=== PATIENT | male | born 1945 | race Caucasian/White ===

== ENCOUNTER 2023-04-23 23:45 | Inpatient (IN) | payer OTHER ==
[2023-04-24 02:05] LABS: VENOUS BASE EXCESS -2.7 mmol/L (-2-2); VENOUS O2 SATURATION 36.7 % (70-80); VENOUS PCO2 43.5 mmHg (38-52); VENOUS PH 7.343 (7.310-7.410)
[2023-04-24 02:07] LABS: BASO % 0.5 % (0-2.0); EOS % 0.4 % (0-4.5); HEMATOCRIT 42.8 % (35.4-49); HEMOGLOBIN 14.7 GM/dL (11.7-16.9); LYMPH % 9.3 % (8-40); MCH 30.1 pg (25.7-33.7); MCHC 34.3 g/dl (32.0-35.9); MEAN CELL VOLUME 87.9 fl (80-96); MEAN PLT VOLUME 8.5 fl (7.5-11.1); MONO % 8.9 % (3.8-10.2); NEUT % 80.9 % (42.8-82.8); PLATELET COUNT 298 10^3/uL (134-434); RBC 4.87 M/mm3 (4.00-5.60); RDW 13.9 % (11.9-15.9); WHITE BLOOD COUNT 11.6 K/mm3 (4.0-10.0)
[2023-04-24 02:15] LABS: INR 1.05 (0.83-1.09); PROTHROMBIN TIME (PATIENT) 12.2 SEC (9.7-13.0)
[2023-04-24 02:17] LABS: ACTIVATED PTT 34.7 SECONDS (25.2-36.5)
[2023-04-24] MEDS: SODIUM CHLORIDE 0.9% 500 ML INFUS.BAG IV ONE ×3 (02:35→05:08)
[2023-04-24] MEDS ORDERED: VANCOMYCIN 1 GRAM (PRE-DOCKED) 1,000 MG/250 ML BAG IVPB ONE (02:35)
[2023-04-24] MEDS: VANCOMYCIN 1,000 MG in DEXTROSE 5%-WATER - 250 ML IVPB ONE (02:41)
[2023-04-24 02:44] LABS: LACTIC ACID 2.8 mmol/L (0.4-2.0)
[2023-04-24 03:02] LABS: CALCIUM 10.4 mg/dL (8.5-10.1); POTASSIUM 3.7 mmol/L (3.5-5.1)
[2023-04-24 03:04] LABS: BLOOD UREA NITROGEN 36.7 mg/dL (7-18)
[2023-04-24 03:07] LABS: CREATININE 1.3 mg/dL (0.55-1.3)
[2023-04-24 03:09] LABS: BILIRUBIN,TOTAL 0.9 mg/dL (0.2-1); TOT PROT 7.5 g/dl (6.4-8.2)
[2023-04-24 03:14] LABS: ALBUMIN 3.6 g/dl (3.4-5.0)
[2023-04-24 05:24] LABS: LACTIC ACID 2.2 mmol/L (0.4-2.0)
[2023-04-24] MEDS: SODIUM CHLORIDE 1,000 ML IV SCH (05:45)
[2023-04-24 05:55] LABS: EPI CELLS 4 /uL (0-25.1); HYALINE CASTS 0 /uL (0-3.1); URINE APPEARANCE CLEAR; URINE BACTERIA 0 /uL (0-1359); URINE BILIRUBIN NEGATIVE (NEGATIVE); URINE COLOR DK YELLOW; URINE GLUCOSE (UA) NEGATIVE (NEGATIVE); URINE KETONE 2+ (NEGATIVE); URINE LEUK ESTERASE NEGATIVE (NEGATIVE); URINE NITRITE NEGATIVE (NEGATIVE); URINE PROTEIN 1+ (NEGATIVE); URINE RBC 6 /uL (0-23.9); URINE WBC 6 /uL (0-25.8)
[2023-04-24 06:19] LABS: COCAINE, UR NEGATIVE (NEGATIVE); OPIATES, URI NEGATIVE (NEGATIVE); PHENCYCLIDINE,URINE NEGATIVE (NEGATIVE); URINE AMPHETAMINES NEGATIVE (NEGATIVE); URINE BARBITURATES NEGATIVE (NEGATIVE)
[2023-04-24 06:20] LABS: METHADONE, UR NEGATIVE (NEGATIVE); URINE BENZODIAZEPINES NEGATIVE (NEGATIVE)
[2023-04-24] MEDS ORDERED: CEFTRIAXONE 1 GM/50 ML BAG ONE (06:53)
[2023-04-24] MEDS ORDERED: HEPARIN NA (PORCINE) 5,000 UNITS/ML 1ML VIAL ONE (06:53)
[2023-04-24] MEDS: CEFTRIAXONE 1 GM in DEXTROSE 5%-WATER - 50 ML IVPB SCH (06:59)
[2023-04-24] MEDS: HEPARIN NA (PORCINE) 5,000 UNITS/ML 1ML VIAL SQ SCH (07:05)
[2023-04-24 07:37] LABS: BASO % 0.6 % (0-2.0); EOS % 0.6 % (0-4.5); HEMOGLOBIN 13.5 GM/dL (11.7-16.9); LYMPH % 10.3 % (8-40); MCH 30.3 pg (25.7-33.7); MCHC 34.6 g/dl (32.0-35.9); MEAN CELL VOLUME 87.6 fl (80-96); MONO % 9.4 % (3.8-10.2); NEUT % 79.1 % (42.8-82.8); PLATELET COUNT 268 10^3/uL (134-434); RBC 4.45 M/mm3 (4.00-5.60); RDW 13.6 % (11.9-15.9)
[2023-04-24 07:58] LABS: POTASSIUM 3.5 mmol/L (3.5-5.1)
[2023-04-24 08:00] LABS: ALBUMIN 3.1 g/dl (3.4-5.0); BLOOD UREA NITROGEN 34.3 mg/dL (7-18); CALCIUM 9.4 mg/dL (8.5-10.1)
[2023-04-24 08:04] LABS: CREATININE 1.1 mg/dL (0.55-1.3); PHOSPHOROUS 2.8 mg/dL (2.5-4.9)
[2023-04-24 08:05] LABS: BILIRUBIN,TOTAL 0.9 mg/dL (0.2-1); TOT PROT 6.6 g/dl (6.4-8.2)
[2023-04-24 08:32] LABS: URINE CRYSTALS NEGATIVE /hpf
[2023-04-24 10:05] VITALS: BMI 25.2
[2023-04-24] MEDS: LORazepam 2 MG/ML SDV VIAL IVPUSH ONE (20:26)
[2023-04-24 21:42] LABS: METHADONE, UR NEGATIVE (NEGATIVE); PHENCYCLIDINE,URINE NEGATIVE (NEGATIVE); URINE BENZODIAZEPINES NEGATIVE (NEGATIVE)
[2023-04-24 21:43] LABS: COCAINE, UR NEGATIVE (NEGATIVE); OPIATES, URI NEGATIVE (NEGATIVE); URINE BARBITURATES NEGATIVE (NEGATIVE)
[2023-04-24] MEDS ORDERED: ATORVASTATIN CA 40 MG TABLET (FP) PO SCH (22:00)
[2023-04-24 22:50] LABS: URINE AMPHETAMINES NEGATIVE (NEGATIVE)
[2023-04-24] MEDS: QUEtiapine FUMARATE 25 MG TABLET PO SCH (23:13)
[2023-04-25 09:01] LABS: BASO % 0.6 % (0-2.0); HEMATOCRIT 39.6 % (35.4-49); HEMOGLOBIN 13.2 GM/dL (11.7-16.9); LYMPH % 12.3 % (8-40); MCH 29.7 pg (25.7-33.7); MCHC 33.3 g/dl (32.0-35.9); MEAN CELL VOLUME 89.3 fl (80-96); MEAN PLT VOLUME 9.4 fl (7.5-11.1); MONO % 9.9 % (3.8-10.2); NEUT % 75.2 % (42.8-82.8); PLATELET COUNT 238 10^3/uL (134-434); RBC 4.44 M/mm3 (4.00-5.60); RDW 13.9 % (11.9-15.9); WHITE BLOOD COUNT 9.4 K/mm3 (4.0-10.0)
[2023-04-25 09:20] LABS: POTASSIUM 3.7 mmol/L (3.5-5.1)
[2023-04-25 09:24] LABS: ALBUMIN 2.9 g/dl (3.4-5.0)
[2023-04-25 09:25] LABS: CALCIUM 8.8 mg/dL (8.5-10.1); MAGNESIUM 1.8 mg/dL (1.8-2.4)
[2023-04-25 09:26] LABS: BLOOD UREA NITROGEN 26.9 mg/dL (7-18)
[2023-04-25 09:27] LABS: CREATININE 1.1 mg/dL (0.55-1.3)
[2023-04-25 09:28] LABS: BILIRUBIN,TOTAL 0.8 mg/dL (0.2-1); TOT PROT 6.3 g/dl (6.4-8.2)
[2023-04-25] MEDS ORDERED: PATIENT'S OWN MEDICATION (NON-FORMULARY) (Amlodipine Besylate/Benazepril [Amlodipine-Benaz PO SCH (10:00)
[2023-04-25] MEDS: amLODIPine BESYLATE 5 MG TABLET (FP) PO SCH (11:08)
[2023-04-25] MEDS: LISINOPRIL 20 MG TABLET PO SCH (11:08)
[2023-04-26 07:53] LABS: POTASSIUM 3.3 mmol/L (3.5-5.1)
[2023-04-26 07:54] LABS: CALCIUM 8.9 mg/dL (8.5-10.1)
[2023-04-26 07:55] LABS: BLOOD UREA NITROGEN 20.3 mg/dL (7-18)
[2023-04-26 08:07] LABS: BASO % 0.6 % (0-2.0); EOS % 2.8 % (0-4.5); MCH 30.1 pg (25.7-33.7); MCHC 34.1 g/dl (32.0-35.9); MEAN CELL VOLUME 88.2 fl (80-96); MEAN PLT VOLUME 9.2 fl (7.5-11.1); MONO % 11.1 % (3.8-10.2); NEUT % 68.5 % (42.8-82.8); PLATELET COUNT 223 10^3/uL (134-434); RBC 4.31 M/mm3 (4.00-5.60); RDW 13.7 % (11.9-15.9); WHITE BLOOD COUNT 8.6 K/mm3 (4.0-10.0)
[2023-04-26] MEDS: GABAPENTIN 100 MG CAPSULE PO SCH ×2 (11:39→23:01)
[2023-04-26] MEDS: POTASSIUM CHLORIDE TABS 20 MEQ TABLET.ER (FP) PO ONE (13:50)
[2023-04-26] MEDS: ATORVASTATIN CA 40 MG TABLET (FP) PO SCH (23:01)
[2023-04-27 08:41] LABS: BASO % 0.9 % (0-2.0); EOS % 3.8 % (0-4.5); HEMATOCRIT 40.9 % (35.4-49); HEMOGLOBIN 13.6 GM/dL (11.7-16.9); LYMPH % 16.8 % (8-40); MCH 29.7 pg (25.7-33.7); MCHC 33.4 g/dl (32.0-35.9); MEAN CELL VOLUME 88.9 fl (80-96); MEAN PLT VOLUME 9.3 fl (7.5-11.1); NEUT % 67.5 % (42.8-82.8); PLATELET COUNT 245 10^3/uL (134-434); RDW 14.1 % (11.9-15.9); WHITE BLOOD COUNT 6.7 K/mm3 (4.0-10.0)
[2023-04-27 08:59] LABS: POTASSIUM 3.1 mmol/L (3.5-5.1)
[2023-04-27 09:06] LABS: BLOOD UREA NITROGEN 16.5 mg/dL (7-18); CALCIUM 9.2 mg/dL (8.5-10.1)
[2023-04-27 09:11] LABS: TOT PROT 6.6 g/dl (6.4-8.2)
[2023-04-27] MEDS: POTASSIUM CHLORIDE TABS 20 MEQ TABLET.ER (FP) PO SCH (10:14)
[2023-04-27] MEDS: LACTATED RINGERS SOLUTION 1,000 ML/1,000 ML INFUS.BAG IV STA (14:30)
[2023-04-27 15:05] LABS: PHOSPHOROUS 3.2 mg/dL (2.5-4.9)
[2023-04-27] MEDS: QUEtiapine FUMARATE 25 MG TABLET PO ONE (20:39)
[2023-04-27] MEDS: MELATONIN 5 MG TABLETS PO PRN (22:11)
[2023-04-28] MEDS: LORazepam 0.5 MG TABLET PO ONE ×3 (07:24→18:20)
[2023-04-28] MEDS: diphenhydrAMINE HCL 25 MG CAPSULE (FP) PO ONE (10:14)
[2023-04-28] MEDS: QUEtiapine FUMARATE 25 MG TABLET PO SCH (10:15)
[2023-04-28 11:17] LABS: BASO % 0.7 % (0-2.0); EOS % 3.3 % (0-4.5); HEMATOCRIT 37.5 % (35.4-49); MCH 30.4 pg (25.7-33.7); MCHC 34.7 g/dl (32.0-35.9); MEAN CELL VOLUME 87.8 fl (80-96); MEAN PLT VOLUME 8.8 fl (7.5-11.1); MONO % 13.6 % (3.8-10.2); NEUT % 67.4 % (42.8-82.8); PLATELET COUNT 242 10^3/uL (134-434); RBC 4.27 M/mm3 (4.00-5.60); RDW 13.9 % (11.9-15.9); WHITE BLOOD COUNT 6.6 K/mm3 (4.0-10.0)
[2023-04-28 11:29] LABS: POTASSIUM 3.5 mmol/L (3.5-5.1)
[2023-04-28 11:31] LABS: MAGNESIUM 1.9 mg/dL (1.8-2.4)
[2023-04-28 11:32] LABS: ALBUMIN 2.9 g/dl (3.4-5.0); BLOOD UREA NITROGEN 14.8 mg/dL (7-18); CALCIUM 9.3 mg/dL (8.5-10.1)
[2023-04-28 11:35] LABS: BILIRUBIN,DIRECT 0.1 mg/dL (0.0-0.2)
[2023-04-28 11:36] LABS: PHOSPHOROUS 2.7 mg/dL (2.5-4.9); TOT PROT 6.2 g/dl (6.4-8.2)
[2023-04-28 11:37] LABS: BILIRUBIN,TOTAL 0.7 mg/dL (0.2-1)
[2023-04-28] MEDS: HALOPERIDOL 1 MG TABLET PO ONE (13:09)
[2023-04-28] MEDS ORDERED: HALOPERIDOL 2 MG TABLET PO PRN (17:52)
[2023-04-28] MEDS ORDERED: HALOPERIDOL 1 MG TABLET PO PRN (18:16)
[2023-04-28] MEDS: CEPHALEXIN MONOHYDRATE 500 MG CAPSULE (UD) PO SCH (21:44)
[2023-04-28] MEDS ORDERED: AMOXICILLIN 500 MG CAPSULE (FP) PO SCH (22:00)
[2023-04-29 09:58] LABS: BASO % 0.8 % (0-2.0); EOS % 5.3 % (0-4.5); HEMATOCRIT 40.4 % (35.4-49); HEMOGLOBIN 13.5 GM/dL (11.7-16.9); LYMPH % 15.6 % (8-40); MCH 29.9 pg (25.7-33.7); MCHC 33.4 g/dl (32.0-35.9); MEAN CELL VOLUME 89.4 fl (80-96); MEAN PLT VOLUME 7.9 fl (7.5-11.1); MONO % 12.8 % (3.8-10.2); NEUT % 65.5 % (42.8-82.8); PLATELET COUNT 245 10^3/uL (134-434); RBC 4.52 M/mm3 (4.00-5.60); RDW 14.2 % (11.9-15.9); WHITE BLOOD COUNT 6.8 K/mm3 (4.0-10.0)
[2023-04-29] MEDS ORDERED: LORazepam 1 MG TABLET PO ONE (10:00)
[2023-04-29 10:15] LABS: POTASSIUM 3.9 mmol/L (3.5-5.1)
[2023-04-29 10:40] LABS: MAGNESIUM 2.3 mg/dL (1.8-2.4)
[2023-04-29 10:41] LABS: TOT PROT 6.6 g/dl (6.4-8.2)
[2023-04-29 10:44] LABS: BLOOD UREA NITROGEN 15.4 mg/dL (7-18); CALCIUM 9.5 mg/dL (8.5-10.1)
[2023-04-29 10:45] LABS: PHOSPHOROUS 3.2 mg/dL (2.5-4.9)
[2023-04-29 10:46] LABS: BILIRUBIN,DIRECT 0.1 mg/dL (0.0-0.2); BILIRUBIN,TOTAL 0.6 mg/dL (0.2-1)
[2023-04-29] MEDS: LORazepam 1 MG TABLET PO SCH (11:21)
[2023-04-29] MEDS: MINERAL OIL/PET HY-PHL TOPICAL OINTMENT 454 GM JAR TP SCH (15:43)
[2023-04-30 08:21] LABS: BASO % 0.5 % (0-2.0); EOS % 4.5 % (0-4.5); HEMATOCRIT 34.7 % (35.4-49); HEMOGLOBIN 12.2 GM/dL (11.7-16.9); LYMPH % 6.7 % (8-40); MCH 31.2 pg (25.7-33.7); MCHC 35.1 g/dl (32.0-35.9); MEAN CELL VOLUME 88.8 fl (80-96); MEAN PLT VOLUME 8.7 fl (7.5-11.1); MONO % 9.5 % (3.8-10.2); NEUT % 78.8 % (42.8-82.8); PLATELET COUNT 203 10^3/uL (134-434); RBC 3.91 M/mm3 (4.00-5.60); RDW 14.4 % (11.9-15.9); WHITE BLOOD COUNT 6.2 K/mm3 (4.0-10.0)
[2023-04-30 08:25] LABS: POTASSIUM 4.1 mmol/L (3.5-5.1)
[2023-04-30 08:32] LABS: MAGNESIUM 2.1 mg/dL (1.8-2.4)
[2023-04-30 08:33] LABS: CALCIUM 8.7 mg/dL (8.5-10.1)
[2023-04-30 08:34] LABS: ALBUMIN 2.6 g/dl (3.4-5.0); BLOOD UREA NITROGEN 14.6 mg/dL (7-18)
[2023-04-30 08:36] LABS: CREATININE 0.9 mg/dL (0.55-1.3)
[2023-04-30 08:37] LABS: BILIRUBIN,DIRECT 0.1 mg/dL (0.0-0.2); PHOSPHOROUS 3.2 mg/dL (2.5-4.9); TOT PROT 5.6 g/dl (6.4-8.2)
[2023-04-30 08:39] LABS: BILIRUBIN,TOTAL 0.4 mg/dL (0.2-1)
[2023-05-01] MEDS: ACETAMINOPHEN 325 MG TABLET (FP) PO ONE (06:50)
[2023-05-01 07:36] LABS: HEMATOCRIT 37.1 % (35.4-49); HEMOGLOBIN 12.8 GM/dL (11.7-16.9); MCH 30.5 pg (25.7-33.7); MCHC 34.5 g/dl (32.0-35.9); MEAN CELL VOLUME 88.6 fl (80-96); MEAN PLT VOLUME 8.5 fl (7.5-11.1); PLATELET COUNT 196 10^3/uL (134-434); RBC 4.19 M/mm3 (4.00-5.60); RDW 14.3 % (11.9-15.9); WHITE BLOOD COUNT 6.1 K/mm3 (4.0-10.0)
[2023-05-01 07:43] LABS: POTASSIUM 4.4 mmol/L (3.5-5.1)
[2023-05-01 07:45] LABS: CALCIUM 9.5 mg/dL (8.5-10.1)
[2023-05-01 07:46] LABS: ALBUMIN 2.8 g/dl (3.4-5.0)
[2023-05-01 07:49] LABS: CREATININE 1.2 mg/dL (0.55-1.3)
[2023-05-01 07:51] LABS: BILIRUBIN,TOTAL 0.4 mg/dL (0.2-1); TOT PROT 6.4 g/dl (6.4-8.2)
[2023-05-01 09:25] LABS: ANISOCYTOSIS 0; HELMET CELLS 0; HOWELL-JOLLY BODIES 0; MACROCYTOSIS 0; OVALOCYTE 0; ROULEAU 0; SICKELED CELLS 0; TARGET CELLS 0; TEAR DROP CELLS 0; TOXIC GRANULATION 0
[2023-05-01] MEDS ORDERED: ACETAMINOPHEN 325 MG TABLET (FP) PO PRN (11:02)
[2023-05-02 09:17] LABS: BASO % 0.4 % (0-2.0); EOS % 0.1 % (0-4.5); HEMATOCRIT 39.5 % (35.4-49); HEMOGLOBIN 13.3 GM/dL (11.7-16.9); LYMPH % 8.1 % (8-40); MCH 30.4 pg (25.7-33.7); MCHC 33.8 g/dl (32.0-35.9); MEAN PLT VOLUME 9.2 fl (7.5-11.1); MONO % 15.5 % (3.8-10.2); NEUT % 75.9 % (42.8-82.8); PLATELET COUNT 203 10^3/uL (134-434); RBC 4.39 M/mm3 (4.00-5.60); RDW 14.6 % (11.9-15.9)
[2023-05-02 09:47] LABS: POTASSIUM 4.3 mmol/L (3.5-5.1)
[2023-05-02 10:02] LABS: BLOOD UREA NITROGEN 17.3 mg/dL (7-18)
[2023-05-02 10:03] LABS: ALBUMIN 2.9 g/dl (3.4-5.0); CALCIUM 9.1 mg/dL (8.5-10.1); MAGNESIUM 2.1 mg/dL (1.8-2.4)
[2023-05-02 10:07] LABS: CREATININE 1.1 mg/dL (0.55-1.3)
[2023-05-02 10:08] LABS: TOT PROT 6.9 g/dl (6.4-8.2)
[2023-05-02 10:10] LABS: BILIRUBIN,TOTAL 0.4 mg/dL (0.2-1)
[2023-05-02] MEDS: OSELTAMIVIR PHOSPHATE 75 MG CAPSULE PO SCH (16:17)
[2023-05-03 09:30] LABS: BASO % 0.4 % (0-2.0); EOS % 0.8 % (0-4.5); HEMATOCRIT 38.7 % (35.4-49); LYMPH % 21.3 % (8-40); MCH 30.4 pg (25.7-33.7); MCHC 33.7 g/dl (32.0-35.9); MEAN CELL VOLUME 90.1 fl (80-96); MEAN PLT VOLUME 9.1 fl (7.5-11.1); MONO % 15.9 % (3.8-10.2); NEUT % 61.6 % (42.8-82.8); PLATELET COUNT 192 10^3/uL (134-434); RBC 4.29 M/mm3 (4.00-5.60); RDW 14.6 % (11.9-15.9); WHITE BLOOD COUNT 7.2 K/mm3 (4.0-10.0)
[2023-05-03 10:35] LABS: POTASSIUM 4.2 mmol/L (3.5-5.1)
[2023-05-03 10:39] LABS: CALCIUM 8.8 mg/dL (8.5-10.1); MAGNESIUM 2.2 mg/dL (1.8-2.4)
[2023-05-03 10:41] LABS: ALBUMIN 2.8 g/dl (3.4-5.0); BLOOD UREA NITROGEN 19.3 mg/dL (7-18)
[2023-05-03 10:43] LABS: CREATININE 1.2 mg/dL (0.55-1.3)
[2023-05-03 10:44] LABS: TOT PROT 6.5 g/dl (6.4-8.2)
[2023-05-03 10:45] LABS: BILIRUBIN,TOTAL 0.5 mg/dL (0.2-1)
[2023-05-03] MEDS ORDERED: LORazepam 2 MG TABLET PO SCH (12:45)
[2023-05-03] MEDS: CEFAZOLIN 1 GM in DEXTROSE 5%-WATER - 50 ML IVPB SCH (15:43)
[2023-05-04 09:11] LABS: BASO % 0.3 % (0-2.0); EOS % 0.3 % (0-4.5); HEMATOCRIT 36.4 % (35.4-49); LYMPH % 12.5 % (8-40); MCH 31.6 pg (25.7-33.7); MCHC 35.6 g/dl (32.0-35.9); MEAN CELL VOLUME 88.7 fl (80-96); MEAN PLT VOLUME 8.7 fl (7.5-11.1); MONO % 11.2 % (3.8-10.2); NEUT % 75.7 % (42.8-82.8); PLATELET COUNT 206 10^3/uL (134-434); RBC 4.11 M/mm3 (4.00-5.60); RDW 14.3 % (11.9-15.9); WHITE BLOOD COUNT 7.8 K/mm3 (4.0-10.0)
[2023-05-04] MEDS: LORazepam 2 MG TABLET PO ONE (09:38)
[2023-05-04 09:58] LABS: POTASSIUM 4.6 mmol/L (3.5-5.1)
[2023-05-04 10:03] LABS: CALCIUM 9.1 mg/dL (8.5-10.1)
[2023-05-04 10:04] LABS: ALBUMIN 2.7 g/dl (3.4-5.0); BLOOD UREA NITROGEN 18.1 mg/dL (7-18); MAGNESIUM 2.4 mg/dL (1.8-2.4)
[2023-05-04 10:08] LABS: BILIRUBIN,TOTAL 0.6 mg/dL (0.2-1); TOT PROT 6.7 g/dl (6.4-8.2)
[2023-05-04 20:43] LABS: EPI CELLS 7 /uL (0-25.1); HYALINE CASTS 1 /uL (0-3.1); PH,URINE 6.5 (5.0-8.0); URINE APPEARANCE CLEAR; URINE BACTERIA 1 /uL (0-1359); URINE BILIRUBIN NEGATIVE (NEGATIVE); URINE COLOR YELLOW; URINE GLUCOSE (UA) NEGATIVE (NEGATIVE); URINE KETONE NEGATIVE (NEGATIVE); URINE LEUK ESTERASE NEGATIVE (NEGATIVE); URINE NITRITE NEGATIVE (NEGATIVE); URINE PROTEIN 1+ (NEGATIVE); URINE RBC 6 /uL (0-23.9); URINE UROBILINOGEN 0.2 mg/dL (0.2-1.0); URINE WBC 2 /uL (0-25.8)
[2023-05-04] MEDS: QUEtiapine FUMARATE 25 MG TABLET PO SCH (22:32)
[2023-05-05 09:02] LABS: BASO % 0.2 % (0-2.0); EOS % 0.5 % (0-4.5); HEMATOCRIT 38.2 % (35.4-49); HEMOGLOBIN 12.9 GM/dL (11.7-16.9); LYMPH % 9.4 % (8-40); MCH 30.2 pg (25.7-33.7); MCHC 33.6 g/dl (32.0-35.9); MEAN CELL VOLUME 89.9 fl (80-96); MEAN PLT VOLUME 8.9 fl (7.5-11.1); MONO % 8.3 % (3.8-10.2); NEUT % 81.6 % (42.8-82.8); PLATELET COUNT 211 10^3/uL (134-434); RBC 4.25 M/mm3 (4.00-5.60); RDW 14.3 % (11.9-15.9); WHITE BLOOD COUNT 8.4 K/mm3 (4.0-10.0)
[2023-05-05 09:57] LABS: POTASSIUM 4.3 mmol/L (3.5-5.1)
[2023-05-05 09:58] LABS: BLOOD UREA NITROGEN 16.1 mg/dL (7-18)
[2023-05-05] MEDS: QUEtiapine FUMARATE 25 MG TABLET PO SCH (11:11)
[2023-05-05] MEDS: FUROSEMIDE 40 MG/4 ML INJECTABLE VIAL IVPUSH ONE (15:28)
[2023-05-05] MEDS: LORazepam 1 MG TABLET PO PRN (18:06)
[2023-05-06] MEDS: FUROSEMIDE 40 MG/4 ML INJECTABLE VIAL IVPUSH ONE (10:30)
[2023-05-06] MEDS ORDERED: ceFAZolin SODIUM 1 GM VIAL ONE (16:57)
[2023-05-06] MEDS: LACTATED RINGERS SOLUTION 1,000 ML/1,000 ML INFUS.BAG IV STA (23:39)
[2023-05-07 09:09] LABS: HEMATOCRIT 36.6 % (35.4-49); HEMOGLOBIN 12.7 GM/dL (11.7-16.9); MCH 30.9 pg (25.7-33.7); MCHC 34.6 g/dl (32.0-35.9); MEAN CELL VOLUME 89.1 fl (80-96); MEAN PLT VOLUME 8.8 fl (7.5-11.1); PLATELET COUNT 280 10^3/uL (134-434); RDW 14.6 % (11.9-15.9); WHITE BLOOD COUNT 6.6 K/mm3 (4.0-10.0)
[2023-05-07 09:26] LABS: POTASSIUM 4.6 mmol/L (3.5-5.1)
[2023-05-07 09:31] LABS: CREATININE 1.1 mg/dL (0.55-1.3)
[2023-05-08] MEDS ORDERED: ceFAZolin SODIUM 1 GM VIAL ONE (02:05)
[2023-05-08] MEDS ORDERED: ASPIRIN 81 MG CHEWABLE TABLETS PO SCH (11:15)
[2023-05-08] MEDS: ENOXAPARIN NA (PORCINE) 40 MG/0.4 ML DISP.SYRIN SQ SCH (13:30)
[2023-05-09] MEDS: AMOX TR/POT CLAV 875MG/125MG TABLETS (FP) PO SCH (17:45)
[2023-05-09] MEDS: QUEtiapine FUMARATE 25 MG TABLET PO SCH (23:29)
[2023-05-10 10:17] LABS: BASO % 0.6 % (0-2.0); EOS % 4.1 % (0-4.5); HEMATOCRIT 39.9 % (35.4-49); HEMOGLOBIN 13.8 GM/dL (11.7-16.9); LYMPH % 16.6 % (8-40); MCH 30.4 pg (25.7-33.7); MCHC 34.5 g/dl (32.0-35.9); MEAN CELL VOLUME 88.2 fl (80-96); MEAN PLT VOLUME 8.1 fl (7.5-11.1); MONO % 8.4 % (3.8-10.2); NEUT % 70.3 % (42.8-82.8); PLATELET COUNT 421 10^3/uL (134-434); RBC 4.53 M/mm3 (4.00-5.60); RDW 14.1 % (11.9-15.9); WHITE BLOOD COUNT 6.5 K/mm3 (4.0-10.0)
[2023-05-10 10:35] LABS: POTASSIUM 5.4 mmol/L (3.5-5.1)
[2023-05-10 10:40] LABS: CALCIUM 9.8 mg/dL (8.5-10.1)
[2023-05-10 10:41] LABS: BLOOD UREA NITROGEN 24.4 mg/dL (7-18)
[2023-05-10 10:45] LABS: BILIRUBIN,TOTAL 0.5 mg/dL (0.2-1); TOT PROT 7.6 g/dl (6.4-8.2)
[2023-05-10] MEDS: QUEtiapine FUMARATE 25 MG TABLET PO SCH (20:45)
[2023-05-11 08:37] LABS: POTASSIUM 4.9 mmol/L (3.5-5.1)
[2023-05-11 08:39] LABS: CALCIUM 9.4 mg/dL (8.5-10.1)
[2023-05-11 08:43] LABS: CREATININE 0.9 mg/dL (0.55-1.3)
[2023-05-11] MEDS: MELATONIN 5 MG TABLETS PO PRN (22:26)
[2023-05-12 08:54] LABS: HEMATOCRIT 37.9 % (35.4-49); MCH 30.7 pg (25.7-33.7); MCHC 34.4 g/dl (32.0-35.9); MEAN CELL VOLUME 89.3 fl (80-96); MEAN PLT VOLUME 7.8 fl (7.5-11.1); PLATELET COUNT 445 10^3/uL (134-434); RBC 4.25 M/mm3 (4.00-5.60); WHITE BLOOD COUNT 7.4 K/mm3 (4.0-10.0)
[2023-05-12] MEDS: LORazepam 1 MG TABLET PO ONE (09:12)
[2023-05-12 09:13] LABS: POTASSIUM 4.4 mmol/L (3.5-5.1)
[2023-05-12 09:14] LABS: CALCIUM 9.8 mg/dL (8.5-10.1)
[2023-05-12 09:15] LABS: ALBUMIN 2.9 g/dl (3.4-5.0); BLOOD UREA NITROGEN 22.3 mg/dL (7-18); MAGNESIUM 2.2 mg/dL (1.8-2.4)
[2023-05-12 09:20] LABS: BILIRUBIN,TOTAL 0.5 mg/dL (0.2-1); TOT PROT 7.2 g/dl (6.4-8.2)
[2023-05-12 09:48] LABS: ANISOCYTOSIS 0; MACROCYTOSIS 0
[2023-05-12] MEDS: LORazepam 0.5 MG TABLET PO SCH (21:57)
[2023-05-13] MEDS: QUEtiapine FUMARATE 25 MG TABLET PO SCH (09:06)
[2023-05-13 09:18] LABS: BASO % 0.8 % (0-2.0); EOS % 3.7 % (0-4.5); HEMATOCRIT 36.1 % (35.4-49); HEMOGLOBIN 12.1 GM/dL (11.7-16.9); LYMPH % 16.8 % (8-40); MCH 29.7 pg (25.7-33.7); MCHC 33.5 g/dl (32.0-35.9); MEAN CELL VOLUME 88.6 fl (80-96); MEAN PLT VOLUME 7.9 fl (7.5-11.1); NEUT % 68.7 % (42.8-82.8); PLATELET COUNT 424 10^3/uL (134-434); RBC 4.07 M/mm3 (4.00-5.60); RDW 14.3 % (11.9-15.9)
[2023-05-13 09:40] LABS: POTASSIUM 4.4 mmol/L (3.5-5.1)
[2023-05-13 09:51] LABS: BLOOD UREA NITROGEN 27.4 mg/dL (7-18); CALCIUM 9.3 mg/dL (8.5-10.1)
[2023-05-13 09:52] LABS: ALBUMIN 2.9 g/dl (3.4-5.0); BILIRUBIN,TOTAL 0.4 mg/dL (0.2-1)
[2023-05-13 09:53] LABS: TOT PROT 6.8 g/dl (6.4-8.2)
[2023-05-13 09:54] LABS: CREATININE 0.9 mg/dL (0.55-1.3)
[2023-05-13] MEDS: OLANZapine 10 MG TABLET PO ONE (10:03)
[2023-05-13] MEDS: OLANZapine 5 MG TABLET PO SCH (21:21)
[2023-05-14 09:25] LABS: BASO % 0.7 % (0-2.0); EOS % 2.2 % (0-4.5); HEMATOCRIT 36.5 % (35.4-49); HEMOGLOBIN 12.6 GM/dL (11.7-16.9); MCH 30.4 pg (25.7-33.7); MCHC 34.5 g/dl (32.0-35.9); MEAN CELL VOLUME 88.1 fl (80-96); MEAN PLT VOLUME 7.9 fl (7.5-11.1); MONO % 8.9 % (3.8-10.2); NEUT % 75.2 % (42.8-82.8); PLATELET COUNT 459 10^3/uL (134-434); RBC 4.15 M/mm3 (4.00-5.60); RDW 14.4 % (11.9-15.9); WHITE BLOOD COUNT 9.2 K/mm3 (4.0-10.0)
[2023-05-14 09:44] LABS: POTASSIUM 4.6 mmol/L (3.5-5.1)
[2023-05-14 09:49] LABS: BLOOD UREA NITROGEN 28.9 mg/dL (7-18); CALCIUM 9.8 mg/dL (8.5-10.1); MAGNESIUM 2.1 mg/dL (1.8-2.4)
[2023-05-14 09:52] LABS: CREATININE 1.1 mg/dL (0.55-1.3)
[2023-05-14 09:53] LABS: BILIRUBIN,TOTAL 0.4 mg/dL (0.2-1); TOT PROT 7.2 g/dl (6.4-8.2)
[2023-05-14] MEDS ORDERED: LORazepam 2 MG TABLET PO PRN (09:53)
[2023-05-14] MEDS: LORazepam 2 MG/ML SDV VIAL IM ONE (11:22)
[2023-05-15] MEDS ORDERED: AMOX TR/POT CLAV 875MG/125MG TABLETS (FP) PO SCH (08:00)
[2023-05-15 09:42] LABS: BASO % 1.1 % (0-2.0); EOS % 2.2 % (0-4.5); HEMATOCRIT 36.9 % (35.4-49); HEMOGLOBIN 12.5 GM/dL (11.7-16.9); LYMPH % 15.4 % (8-40); MCH 30.4 pg (25.7-33.7); MCHC 33.9 g/dl (32.0-35.9); MEAN CELL VOLUME 89.6 fl (80-96); MEAN PLT VOLUME 8.1 fl (7.5-11.1); MONO % 10.5 % (3.8-10.2); NEUT % 70.8 % (42.8-82.8); PLATELET COUNT 425 10^3/uL (134-434); RBC 4.12 M/mm3 (4.00-5.60); RDW 14.4 % (11.9-15.9); WHITE BLOOD COUNT 9.3 K/mm3 (4.0-10.0)
[2023-05-15 10:02] LABS: POTASSIUM 4.3 mmol/L (3.5-5.1)
[2023-05-15 10:10] LABS: ALBUMIN 3.2 g/dl (3.4-5.0); BLOOD UREA NITROGEN 28.2 mg/dL (7-18); CALCIUM 9.8 mg/dL (8.5-10.1); MAGNESIUM 2.2 mg/dL (1.8-2.4)
[2023-05-15 10:13] LABS: CREATININE 1.1 mg/dL (0.55-1.3)
[2023-05-15 10:15] LABS: BILIRUBIN,TOTAL 0.4 mg/dL (0.2-1); TOT PROT 7.4 g/dl (6.4-8.2)
[2023-05-15] MEDS: LORazepam 1 MG TABLET PO PRN (14:16)
[2023-05-17] MEDS: OLANZapine 5 MG TABLET PO SCH (21:52)
[2023-05-18] MEDS: ACETAMINOPHEN 325 MG TABLET (FP) PO PRN (22:45)
[2023-05-19] MEDS: HALOPERIDOL LACTATE 5 MG/ML IM ONE (07:30)
[2023-05-19 11:16] LABS: BASO % 1.2 % (0-2.0); EOS % 4.1 % (0-4.5); HEMATOCRIT 37.5 % (35.4-49); HEMOGLOBIN 12.4 GM/dL (11.7-16.9); LYMPH % 20.6 % (8-40); MCH 29.4 pg (25.7-33.7); MCHC 32.9 g/dl (32.0-35.9); MEAN CELL VOLUME 89.3 fl (80-96); MEAN PLT VOLUME 8.2 fl (7.5-11.1); MONO % 13.9 % (3.8-10.2); NEUT % 60.2 % (42.8-82.8); PLATELET COUNT 309 10^3/uL (134-434); RDW 14.2 % (11.9-15.9); WHITE BLOOD COUNT 5.5 K/mm3 (4.0-10.0)
[2023-05-19 11:34] LABS: POTASSIUM 3.9 mmol/L (3.5-5.1)
[2023-05-19 11:40] LABS: CALCIUM 9.2 mg/dL (8.5-10.1)
[2023-05-19 11:44] LABS: CREATININE 0.9 mg/dL (0.55-1.3)
[2023-05-20] MEDS ORDERED: HALOPERIDOL LACTATE 5 MG/ML IM PRN (09:58)
[2023-05-20] MEDS: DIVALPROEX SODIUM 250 MG TABLET E.C. PO SCH (10:48)
[2023-05-20] MEDS: DIVALPROEX SODIUM 125 MG TABLET E.C. PO SCH (11:09)
[2023-05-21 09:36] VITALS: BP 135/68; PULSE 73; RESP 18; TEMP 98.4
== END 2023-05-21 10:40 | DRG 602 ==
LOC: JER 23:45 → JERBED 04-24 04:01 → OBSVTOIN 04-24 04:45 → J7W 04-24 09:30
PROVIDERS: ADMIT Internal Medicine; ATTEND Nurse Practitioner
DX: L03.116 Cellulitis of left lower limb (principal); G93.41 Metabolic encephalopathy; E72.20 Disorder of urea cycle metabolism, unspecified; E87.20 Acidosis, unspecified; I10 Essential (primary) hypertension; R63.4 Abnormal weight loss; E78.5 Hyperlipidemia, unspecified; F17.290 Nicotine dependence, other tobacco product, uncomplicated; R74.01 Elevation of levels of liver transaminase levels; E83.52 Hypercalcemia
CPT/HCPCS: 0241U-QW; 36415; 70450-TC; 70551-TC; 71045-TC-FY; 73560-TC-LT-FY; 73610-TC-LT-FY; 73630-TC-LT; 73700-TC-RT; 76705-TC; 80048; 80053; 80061; 80076; 80307; 81003; 82140; 82550; 82553; 82607; 82746; 82803; 83036; 83605; 83655; 83735; 83970; 84100; 84153; 84443; 84484; 85025; 85027; 85610; 85651; 85730; 86140; 86704; 86780; 86803; 87040; 87086; 87340; 87517; 93005; 93010; 93970-TC; 97116-GP; 97162-GP; 99285-25; G0378; J1644